=== PATIENT | female | born 1990 | race Caucasian/White ===

== ENCOUNTER 2020-11-04 15:19 | Emergency (ER) | payer OTHER ==
[2020-11-04 17:05] LABS: HEMOGLOBIN 14.4 gm/dl (12.3-15.3); RED BLOOD COUNT 4.58 M/UL (4.00-5.10); WHITE BLOOD COUNT 11.5 K/UL (4.5-11.0)
[2020-11-04 17:24] LABS: BUN/CREATININE RATIO 14 (0-10)
== END 2020-11-04 20:00 | disposition home or self-care (01) ==
LOC: ER1 15:19
PROVIDERS: Physician Assistant Medical
DX: R10.31 Right lower quadrant pain (principal); R10.32 Left lower quadrant pain; Z90.89 Acquired absence of other organs; Z88.0 Allergy status to penicillin; Z87.442 Personal history of urinary calculi
CPT/HCPCS: 80053; 81001; 84703; 85025; 99284; J2270; J2405; J7030; Q9967

== ENCOUNTER → 2020-12-13 | Outpatient (CLI) | payer OTHER ==
[2020-12-13 16:35] LABS: RED BLOOD COUNT 5.11 M/UL (4.00-5.10)
== END ==
LOC: LAB 16:08
PROVIDERS: Nurse Practitioner Family
DX: R07.89 Other chest pain (principal); R19.7 Diarrhea, unspecified; R06.02 Shortness of breath; R00.0 Tachycardia, unspecified
CPT/HCPCS: 36415; 85027; 85379